=== PATIENT | female | born 1950 | race Caucasian/White ===

== ENCOUNTER → 2017-11-22 | Outpatient (CLI) | payer OTHER, BC ==
[~2017-11-22] MED LIST: ASPIRIN81 M1 PO; CLEOCIN150 MG PO; HYDROCODONE BIT1 T11 PO; LEXAPRO20 MG PO; VITAMIN E PO
== END | disposition home or self-care (01) ==
LOC: LAB 10:48
DX: R30.0 Dysuria (principal)